=== PATIENT | female | born 1955 | race Hispanic/Latino ===

== ENCOUNTER 2020-09-16 23:28 | Emergency (ER) | payer MEDICARE ==
--- OUTSIDE RECORDS SUMMARY | 2020-09-16 23:31 | XMS REPORT | Continuity of Care Document ---
:1955 Author Organization [facility] t Address [address] [place] [address] [address]. [address] [place] [address] Care Team Providers Name Role Phone Unavailable Unavailable Unavailable Problems Condition Condition Condition Status Onset Resolution Last Treating Co mments Source Name Details Category Date Date Treatment Clinician Date Sprain of Sprain of Diagnosis Active [facility] right right [facility] - rotator rotator [facility] cuff cuff l capsule, capsule, Outpat i initial initial ent encounter encounter Clin ics Bicipital Bicipital Diagnosis Active [facility] tendinitis tendinitis Mely kes - of right of right Memori a shoulder shoulder l Outpati ent Clinics Pain, Pain, Diagnosis Active [facility] joint, joint, [facility] - shoulder, shoulder, Angel makayla right right l Outpati ent Clinics Subacromia Subacromia Diagnosis Active [facility] l bursitis l bursitis Mely kes - of right of right Memori a shoulder shoulder l joint joint Outpati ent Clinics Allergies, Adverse Reactions, Alerts Allergy Allergy Status Severity Reaction(s) Onset Inactive Treating Comm ents Source Name Type Date Date Clinician codeine Adverse Active Info Not [facility] Reaction Available [facility] Medications Ordered Filled Start Stop Current Ordering Indication Dosage Frequency Signature Comments Components Source Medication Medication Date Date Medication? Clinician (SIG) Name Name Losartan Losartan Yes Gera [address] [facility] Potassium Potassium 8-14 Hyot [facility] - 00:00: [facility]oria 00 l Outpati ent Clinics GlyBURIDE GlyBURIDE Yes Gera [address] [facility] 8-14 Hoyt with [facility] - 00:00: breakfast Memoria or the l first main Outpati meal of ent the day Clinics Metformin Metformin Yes Gera [address] [facility] HCl HCl 8-14 Hoyt with a [facility] - 00:00: meal [facility] 00 Outpati ent Clinics Procedures This patient has no known procedures. Encounters Start End Encounter Admission Attending Care Care Encounter Source Date/Time Date/Time Type Type Clinicians Facility Department ID 2018-01-14 2018-01-14 Outpatient Олегpepper Pasha [id number] [facility] [address] 13:30:00 13:30:00 [facility] ent Clinics Results This patient has no known results.
[2020-09-17 01:27] LABS: Absolute Lymphocytes (CBC) 2.9 K/uL (0.7-4.9); Basophils % 0.5 % (0-1.3); Hematocrit 36.8 % (36.0-45.0); Lymphocytes % 39.2 % (15.3-44.8); MPV 8.4 fL (7.6-11.3); Protime INR 0.89; RBC Red Blood Cell Count 4.13 M/uL (3.86-4.86)
[2020-09-17] MEDS ORDERED: METOCLOPRAMIDE 10 MG/2mL INJ ONE (01:36)
[2020-09-17] MEDS ORDERED: NA CHLORIDE 0.9% 500 ML ONE (01:36)
[2020-09-17] MEDS ORDERED: DIPHENHYDRAMINE 50 MG/ML VIAL ONE (01:36)
[2020-09-17 01:41] LABS: ALT/SGPT 32 U/L (12-78); AST/SGOT 16 U/L (15-37); Albumin 4.2 g/dL (3.4-5.0); Alkaline Phosphatase 36 U/L (45-117); BUN Blood Urea Nitrogen 10 mg/dL (7-18); Bicarbonate 26 mmol/L (21-32); Bilirubin Direct 0.1 mg/dL (0-0.2); Bilirubin Total 0.5 mg/dL (0.2-1.0); Glucose Level 118 mg/dL (74-106); Magnesium 1.6 mg/dL (1.8-2.4); NT PRO-BNP 48 pg/mL (<125); Potassium 3.5 mmol/L (3.5-5.1); Protein, Total 7.6 g/dL (6.4-8.2); Sodium Level 134 mmol/L (136-145); Troponin (Emerg Dept Use Only) < 0.02 ng/mL (0.0-0.045)
--- NOTE | 2020-09-17 04:48 | ER ---
Nurse's Notes [facility] Name: Karis Dawson Age: 65 yrs Sex: Female : 1955 Arrival Date: 09/16/2020 Time: 23:32 Bed 4 Private MD: Diagnosis: Hypertension;Headache Presentation: 09/17 00:20 Chief complaint: Patient states: BP at 2030 was high, 180/68; reports BP has continued lp1 to be high; Reports checking BP due to having headache; reports nausea and diarrhea that began at 2200. Coronavirus screen: Client denies travel out of the [place] in the last 14 days. At this time, the client does not indicate any symptoms associated with coronavirus-19. Ebola Screen: No symptoms or risks identified at this time. Risk Assessment: Do you want to hurt yourself or someone else? Patient reports no desire to harm self or others. Onset of symptoms was September 16, 2020 at 20:30. 00:20 Method Of Arrival: Ambulatory lp1 00:20 Acuity: DELICIA 2 lp1 00:24 Initial Sepsis Screen: Does the patient meet any 2 criteria? No. Patient's initial lp1 sepsis screen is negative. Does the patient have a suspected source of infection? No. Patient's initial sepsis screen is negative. Historical: - Allergies: 00:24 No Known Allergies; lp1 - Home Meds: 00:24 losartan 100 mg oral tab twice a day [Active]; Metformin Oral [Active]; Glipizide Oral lp1 [Active]; hydrochlorothiazide 25 mg Oral tab 1 tab once daily [Active]; - PMHx: 00:24 Hypertension; Diabetes - NIDDM; lp1 - PSHx: 00:24 None; lp1 - Immunization history:: Adult Immunizations up to date. - Social history:: Smoking status: Patient denies any tobacco usage or history of. Screenin:24 Abuse screen: Denies threats or abuse. Denies injuries from another. Nutritional lp1 screening: No deficits noted. Tuberculosis screening: No symptoms or risk factors identified. 00:59 Fall Risk None identified. rv Assessment: 00:59 General: Appears comfortable, Behavior is calm, cooperative. Pain: Complains of pain in rv HEAD. Neuro: Level of Consciousness is awake, alert, obeys commands, Oriented to person, place, time, situation, Reports headache. Cardiovascular: Patient's skin is warm and dry. Rhythm is regular. Cardiovascular: Denies chest pain. Respiratory: Airway is patent Respiratory effort is even, unlabored. Derm: Skin is intact. 02:25 Reassessment: Patient appears in no apparent distress at this time. Patient is alert, rr5 oriented x 3, equal unlabored respirations, skin warm/dry/pink. 03:44 Reassessment: awaiting for review. rr5 04:15 Reassessment: Patient appears in no apparent distress at this time. No changes from rr5 previously documented assessment. 04:59 Reassessment: Patient appears in no apparent distress at this time. Patient is alert, rr5 oriented x 3, equal unlabored respirations, skin warm/dry/pink. discharge instruction given and explained without complaints made. Vital Signs: 00:24 BP 215 / 72 RA; Pulse 69; Resp 18; Temp 97.9(TE); Pulse Ox 99% on R/A; Weight 61.69 kg lp1 (R); Pain 6/10; 00:29 BP 175 / 106 LA; lp1 01:00 BP 185 / 64; Pulse 61; Resp 19; Pulse Ox 100% on R/A; rv 02:00 BP 157 / 65; Pulse 62; Resp 20; Pulse Ox 100% on R/A; rv 03:33 BP 158 / 66; Pulse 57; Resp 16; Pulse Ox 100% on R/A; rv 04:59 BP 147 / 65; Pulse 63; Resp 16; Pulse Ox 98% ; rr5 ED Course: 09/16 23:32 Patient arrived in ED. bp1 09/17 00:23 Triage completed. lp1 00:23 Arm band placed on right wrist. lp1 00:34 Herman Akbar, XU is Primary Nurse. rv 00:56 Hayden Garcia MD is Attending Physician. mh7 00:57 Initial lab(s) drawn, by me, sent to lab. EKG done, by ED staff, reviewed by Hayden Garcia MD. Inserted saline lock: 20 gauge in right antecubital area, using aseptic technique. Blood collected. 01:00 Patient has correct armband on for positive identification. site monitor on. Pulse rv ox on. NIBP on. 02:56 CT Head Brain wo Cont In Process Unspecified. EDMS 03:00 CT Abd/Pelvis - IV Contrast Only In Process Unspecified. EDMS 05:00 No provider procedures requiring assistance completed. IV discontinued, intact, rv bleeding controlled, No redness/swelling at site. Pressure dressing applied. 05:00 No provider procedures requiring assistance completed. IV discontinued, intact, rr5 bleeding controlled, No redness/swelling at site. Pressure dressing applied. Administered Medications: 01:25 Drug: Benadryl (diphenhydrAMINE) 25 mg Route: IVP; Site: right antecubital; rr5 02:21 Follow up: Response: No adverse reaction rv 01:25 Drug: NS 0.9% 500 ml Route: IV; Rate: bolus; Site: right antecubital; rr5 02:21 Follow up: IV Status: Completed infusion; IV Intake: 500ml rv 01:27 Drug: Reglan (metoCLOPramide) 10 mg Route: IVP; Site: right antecubital; rr5 02:21 Follow up: Response: No adverse reaction rv Intake: 02:21 IV: 500ml; Total: 500ml. rv Outcome: 04:47 Discharge ordered by . mh7 05:00 Discharged to home ambulatory, with family. rr5 05:00 Condition: stable 05:00 Discharge instructions given to patient, Instructed on discharge instructions, follow up and referral plans. Demonstrated understanding of instructions, follow-up care. 05:00 Patient left the ED. rr5 Signatures: Dispatcher [employer] EDMS Arely Melendrez RN RN lp1 Herman Akbar RN RN rv Curtis Magallon RN RN rr5 Marcy Baugh Maurice, MD MD 7 Corrections: (The following items were deleted from the chart) 00:27 00:24 Pulse 69bpm; Resp 18bpm; Pulse Ox 99% RA; Temp 97.9F Temporal; 61.69 kg Reported; lp1 Pain 6/10; lp1 00:29 00:20 Acuity: DELICIA 3 lp1 lp1
--- NOTE | 2020-09-17 04:48 | EDPHYS ---
Physician Documentation [facility] Name: Karis Dawson Age: 65 yrs Sex: Female : 1955 Arrival Date: 09/16/2020 Time: 23:32 Bed 4 Private MD: ED Physician Hayden Garcia HPI: 09/17 01:54 This 65 yrs old Female presents to ER via Ambulatory with complaints of High mh7 Blood Pressure. 01:54 The patient has elevated blood pressure and discovered this at home, with a home mh7 device. Onset: The symptoms/episode began/occurred last night. Modifying factors: The symptoms are aggravated by nothing, The symptoms are alleviated by nothing. Associated signs and symptoms: Pertinent positives: headache, nausea, diarrhea, Pertinent negatives: chest pain, dizziness, dyspnea, lightheadedness, visual changes, vomiting, weakness. Severity of symptoms: At its worst the blood pressure was 211 mm Hg, in the emergency department the blood pressure is improved, moderately. The patient has experienced similar episodes in the past, multiple times. Historical: - Allergies: 00:24 No Known Allergies; lp1 - Home Meds: 00:24 losartan 100 mg oral tab twice a day [Active]; Metformin Oral [Active]; Glipizide Oral lp1 [Active]; hydrochlorothiazide 25 mg Oral tab 1 tab once daily [Active]; - PMHx: 00:24 Hypertension; Diabetes - NIDDM; lp1 - PSHx: 00:24 None; lp1 - Immunization history:: Adult Immunizations up to date. - Social history:: Smoking status: Patient denies any tobacco usage or history of. ROS: 01:54 Constitutional: Negative for fever, chills, and weight loss, Eyes: Negative for injury, mh7 pain, redness, and discharge, ENT: Negative for injury, pain, and discharge, Neck: Negative for injury, pain, and swelling, Cardiovascular: Negative for chest pain, palpitations, and edema, Respiratory: Negative for shortness of breath, cough, wheezing, and pleuritic chest pain, Back: Negative for injury and pain, : Negative for injury, bleeding, discharge, and swelling, MS/Extremity: Negative for injury and deformity, Skin: Negative for injury, rash, and discoloration, Psych: Negative for depression, anxiety, suicide ideation, homicidal ideation, and hallucinations, Allergy/Immunology: Negative for hives, rash, and allergies, Endocrine: Negative for neck swelling, polydipsia, polyuria, polyphagia, and marked weight changes, Hematologic/Lymphatic: Negative for swollen nodes, abnormal bleeding, and unusual bruising. Exam: 01:54 Constitutional: This is a well developed, well nourished patient who is awake, alert, mh7 and in no acute distress. Head/Face: Normocephalic, atraumatic. Eyes: Pupils equal round and reactive to light, extra-ocular motions intact. Lids and lashes normal. Conjunctiva and sclera are non-icteric and not injected. Cornea within normal limits. Periorbital areas with no swelling, redness, or edema. Neck: Trachea midline, no thyromegaly or masses palpated, and no cervical lymphadenopathy. Supple, full range of motion without nuchal rigidity, or vertebral point tenderness. No Meningismus. Chest/axilla: Normal chest wall appearance and motion. Nontender with no deformity. No lesions are appreciated. Cardiovascular: Regular rate and rhythm with a normal S1 and S2. No gallops, murmurs, or rubs. Normal PMI, no JVD. No pulse deficits. Respiratory: Lungs have equal breath sounds bilaterally, clear to auscultation and percussion. No rales, rhonchi or wheezes noted. No increased work of breathing, no retractions or nasal flaring. Abdomen/GI: Soft, non-tender, with normal bowel sounds. No distension or tympany. No guarding or rebound. No evidence of tenderness throughout. Back: No spinal tenderness. No costovertebral tenderness. Full range of motion. Skin: Warm, dry with normal turgor. Normal color with no rashes, no lesions, and no evidence of cellulitis. MS/ Extremity: Pulses equal, no cyanosis. Neurovascular intact. Full, normal range of motion. Neuro: Awake and alert, GCS 15, oriented to person, place, time, and situation. Cranial nerves II-XII grossly intact. Motor strength 5/5 in all extremities. Sensory grossly intact. Cerebellar exam normal. Normal gait. Psych: Awake, alert, with orientation to person, place and time. Behavior, mood, and affect are within normal limits. Vital Signs: 00:24 BP 215 / 72 RA; Pulse 69; Resp 18; Temp 97.9(TE); Pulse Ox 99% on R/A; Weight 61.69 kg lp1 (R); Pain 6/10; 00:29 BP 175 / 106 LA; lp1 01:00 BP 185 / 64; Pulse 61; Resp 19; Pulse Ox 100% on R/A; rv 02:00 BP 157 / 65; Pulse 62; Resp 20; Pulse Ox 100% on R/A; rv 03:33 BP 158 / 66; Pulse 57; Resp 16; Pulse Ox 100% on R/A; rv 04:59 BP 147 / 65; Pulse 63; Resp 16; Pulse Ox 98% ; rr5 MDM: 04:45 Differential diagnosis: hypertensive crisis, Malignant HTN, Headache. Data reviewed: [facility] vital signs, nurses notes, lab test result(s), cardiac enzymes, CBC, electrolytes, urinalysis, EKG, radiologic studies, CT scan. Data interpreted: Pulse oximetry: on room air is 100 %. Interpretation: normal. Counseling: I had a detailed discussion with the patient and/or guardian regarding: the historical points, exam findings, and any diagnostic results supporting the discharge/admit diagnosis, the presence of at least one elevated blood pressure reading (>120/80) during this emergency department visit, lab results, radiology results, the need for outpatient follow up, to return to the emergency department if symptoms worsen or persist or if there are any questions or concerns that arise at home. Response to treatment: the patient's symptoms have resolved after treatment, the patient's blood pressure is in an acceptable range, mental status has returned to baseline, the patient no longer shows bradycardia, the patient is not short of breath, the patient is not tachycardic, the patient's pain is gone, the patient's temperature has normalized. 04:47 Patient medically screened. [facility] 09/17 00:58 Order name: Basic Metabolic Panel; Complete Time: 03:38 09/17 00:58 Order name: CBC with Diff; Complete Time: 03:38 09/17 00:58 Order name: LFT's; Complete Time: 03:38 09/17 00:58 Order name: Magnesium; Complete Time: 03:38 09/17 00:58 Order name: NT PRO-BNP; Complete Time: 03:38 09/17 00:58 Order name: PT-INR; Complete Time: 03:38 09/17 00:58 Order name: Troponin (emerg Dept Use Only); Complete Time: 03:38 09/17 00:58 Order name: EKG; Complete Time: 00:59 09/17 00:58 Order name: Cardiac monitoring; Complete Time: 00:58 09/17 01:11 Order name: CT Head Brain wo Cont [facility] 09/17 01:12 Order name: CT Abd/Pelvis - IV Contrast Only [facility] 09/17 00:58 Order name: EKG - Nurse/Tech; Complete Time: 00:58 09/17 00:58 Order name: IV Saline Lock; Complete Time: 00:58 09/17 00:58 Order name: Labs collected and sent; Complete Time: 00:58 09/17 00:58 Order name: O2 Per Protocol; Complete Time: 00:58 09/17 00:58 Order name: O2 Sat Monitoring; Complete Time: 00:58 rv Administered Medications: 01:25 Drug: Benadryl (diphenhydrAMINE) 25 mg Route: IVP; Site: right antecubital; rr5 02:21 Follow up: Response: No adverse reaction rv 01:25 Drug: NS 0.9% 500 ml Route: IV; Rate: bolus; Site: right antecubital; rr5 02:21 Follow up: IV Status: Completed infusion; IV Intake: 500ml rv 01:27 Drug: Reglan (metoCLOPramide) 10 mg Route: IVP; Site: right antecubital; rr5 02:21 Follow up: Response: No adverse reaction rv Disposition: 09/17/20 04:47 Discharged to Home. Impression: Hypertension, Headache. - Condition is Stable. - Discharge Instructions: Hypertension, [id number], General Headache Without Cause, [id number]. - Medication Reconciliation Form, Thank You Letter, Antibiotic Education, Prescription Opioid Use form. - Follow up: Private Physician; When: 1 - 2 days; Reason: Worsening of condition, Recheck today's complaints, Continuance of care, Re-evaluation by your physician. - Problem is an acute exacerbation. - Symptoms have improved. Signatures: Dispatcher [employer] EDMS Arely Melendrez RN RN lp1 Herman Akbar RN RN Curtis Taylor RN RN rr5 Hayden Garcia MD MD mh7 Corrections: (The following items were deleted from the chart) 05:00 04:47 09/17/2020 04:47 Discharged to Home. Impression: Hypertension; Headache. rr5 Condition is Stable. Forms are Medication Reconciliation Form, Thank You Letter, Antibiotic Education, Prescription Opioid Use. Follow up: Private Physician; When: 1 - 2 days; Reason: Worsening of condition, Recheck today's complaints, Continuance of care, Re-evaluation by your physician. Problem is an acute exacerbation. Symptoms have improved. mh7
[2020-09-17 05:14] VITALS: TEMP 97.9
[2020-09-17 05:21] VITALS: BP 147/65; O2SAT 98
--- NOTE | 2020-09-17 21:50 | RAD REPORT ---
EXAM DESCRIPTION: CT - Head Brain Wo Cont - 09/17/2020 6:40 am CLINICAL HISTORY: 65 years, Female, HEADACHE COMPARISON: None. FINDINGS: Multiple transaxial tomograms of the brain were obtained from the base of the skull to the vertex without contrast. 2-D multiplanar reformats and the coronal and sagittal plane were performed and reviewed. An individualized dose optimization technique, Automated Exposure Control, was utilized for the perfo rmed procedure. Brain parenchyma as well as the lopez and white matter differentiation demonstrate to be unremarkable. There is no midline shift and/or mass effect. There is no evidence for acute hemorrhage. Lateral v entricles and cisterns displace normal appearance. No intra or extra axial fluid collections were s een. The calvarium is intact with no evidence for fracture. The visualized portions of the paranasal sinuses and orbits demonstrate to be clear. IMPRESSION: NO ACUTE INTRACRANIAL HEMORRHAGE. UNREMARKABLE CT SCAN OF THE HEAD WITHOUT CONTRAST. Electronically signed by: Lew Zamorano MD 09/17/2020 3:08 AM CDT Due to temporary technical issues with the PACS/Fluency reporting system, reports are being signed by the in house radiologists without review as a courtesy to insure prompt reporting. The interpreting radiologist is fully responsible for the content of the report.
--- NOTE | 2020-09-17 21:53 | RAD REPORT ---
EXAM DESCRIPTION: CT - Abdomen Pelvis W Contrast - 09/17/2020 6:39 am COMPARISON: None. CLINICAL HISTORY: [facility] MAIN diarrhea;Nausea / vomiting TECHNIQUE: CT of the abdomen and pelvis was acquired with IV contrast material. Coronal and sagitt al reconstructions were obtained. Automated exposure control was utilized on this examination as a dose lowering technique. FINDINGS: Lung bases: Mild cardiomegaly with otherwise clear lung bases. Liver: Normal. Gallbladder and biliary: A large gallstone is present in the fundus measuring 2.5 cm. Unremarkable bi liary tree. Pancreas: Normal. Spleen: Normal. Adrenal glands: Normal adrenal glands. Kidneys: Normal kidneys Stomach and Small Bowel: The stomach and small bowel are normal. Urinary bladder: Distended. Uterus and Adnexa: Normal. Colon and Appendix: The colon is unremarkable. No evidence of appendicitis. Retroperitoneum and lymph nodes: Normal. Vascular: Moderate multivessel calcified atherosclerosis. Peritoneal cavity: No ascites or free air. Musculoskeletal and soft tissues: Soft tissues are unremarkable. No aggressive bone lesions. No com pression fracture. Lumbar spondylosis is present. There is 3 mm anterolisthesis L5 on S1. IMPRESSION: 1. No acute intra-abdominal abnormality. 2. Mild cardiomegaly. 3. Cholelithiasis. 4. Moderate atherosclerosis. 5. Distended urinary bladder. Electronically signed by: Jaya Brown MD 09/17/2020 3:23 AM CDT Due to temporary technical issues with the PACS/Fluency reporting system, reports are being signed by the in house radiologists without review as a courtesy to insure prompt reporting. The interpreting radiologist is fully responsible for the content of the report.
== END 2020-09-17 05:00 | disposition home or self-care (01) ==
LOC: ER 23:28
DX: I10 Essential (primary) hypertension (principal); R51.9 Headache, unspecified; E11.9 Type 2 diabetes mellitus without complications; Z79.84 Long term (current) use of oral hypoglycemic drugs
CPT/HCPCS: 85025; 80048; 36415; 83735; 85610; 80076; 84484; 83880; 70450; 74177; Q9967; J2765; J1200; J7040; 93005; 96361; 96374; 96375; 99284

== ENCOUNTER 2024-03-10 03:22 | Inpatient (IN) | payer OTHER ==
--- OUTSIDE RECORDS SUMMARY | 2024-03-10 03:24 | XMS REPORT | Continuity of Care Document ---
Author Name Unknown Address [address] [facility] [place] [address] [facility] thconnect Address [address] [facility] [address] [place] [address] Care Team Providers Care Visitor Services Technician Name Role Phone Unavailable Unavailable Unavailable Problems Condition Name Condition Details Condition Category Status Onset Date Resolution Date Last Treatment Date Treating Clinician Comments Source Subacromia l bursitis of right shoulder joint Subacromia l bursitis of right shoulder joint Diagnosis Active [facility] Sprain of right rotator cuff capsule, initial encounter Sprain of right rotator cuff capsule, initial encounter Diagnosis Active [facility] Bicipital tendinitis of right shoulder Bicipital tendinitis of right shoulder Diagnosis Active [facility] Pain, joint, shoulder, right Pain, joint, shoulder, right Diagnosis Active [facility] Allergies, Adverse Reactions, Alerts Allergy Name Allergy Type Status Severity Reaction(s) Onset Date Inactive Date Treating Clinician Comments Source codeine Adverse Reaction Active Info Not Available [facility] Medications Ordered Medication Name Filled Medication Name Start Date Stop Date Current Medication? Ordering Clinician Indication Dosage Frequency Signature (SIG) Comments Components Source Losartan Potassium Losartan Potassium 01-14 00:00: 00 Yes Gera Hoyt 1 tablet [facility] GlyBURIDE GlyBURIDE 01-14 00:00: 00 Yes Gera Hoyt 1 tablet with breakfast or the first main meal of the day [facility] Metformin HCl Metformin HCl 01-14 00:00: 00 Yes Gera Hoyt 1 tablet with a meal [facility] Encounters Start Date/Time End Date/Time Encounter Type Admission Type Attending Clinicians Care Facility Care Department Encounter ID Source 2022-08-31 16:18:08 2022-08-31 16:18:08 Outpatient [facility] [id number] Shiraz Whatley 2018-01-14 13:30:00 2018-01-14 13:30:00 Outpatient [facility] [id number] [facility]
[2024-03-10] MEDS ORDERED: ONDANSETRON 4 MG/2 ML VIAL ONE (03:49)
[2024-03-10] MEDS ORDERED: MORPHINE 4 MG/ML SYR ONE (03:50)
[2024-03-10 04:13] LABS: Absolute Eosinophils 0.1 K/uL (0-0.5); Absolute Lymphocytes (CBC) 3.3 K/uL (0.7-4.9); Absolute Monocytes 0.7 K/uL (0.1-1.3); Absolute Neutrophil 6.1 K/uL (1.8-8.0); Basophils % 0.3 % (0-1.3); Eosinophils % 1.1 % (0-4.4); Hematocrit 34.3 % (36.0-45.0); Hemoglobin 11.4 g/dL (12.0-15.0); Lymphocytes % 32.3 % (15.3-44.8); MCH 29.1 pg (27.0-35.0); MCHC 33.1 g/dL (32.0-36.0); MCV 87.8 fL (80-100); MPV 7.9 fL (7.6-11.3); Monocytes % 7.3 % (3.3-12.3); Platelets 506 thou/uL (152-406); RBC Red Blood Cell Count 3.91 M/uL (3.86-4.86); Red Cell Distribution Width 14.5 % (12.1-15.2)
[2024-03-10 04:19] LABS: Specific Gravity 1.008 (1.005-1.030); Urine Bilirubin NEGATIVE (Negative); Urine Blood Negative (Negative); Urine Clarity Clear (Clear); Urine Color Colorless (Yellow); Urine Glucose NEGATIVE (Negative); Urine Ketones NEGATIVE (Negative); Urine Microscopic Reflex YN NO UMIC; Urine Nitrite NEGATIVE (Negative); Urine Protein NEGATIVE (Negative); Urine Urobilinogen Normal (Normal)
[2024-03-10 04:25] LABS: Albumin 3.7 g/dL (3.4-5.0); Albumin/Globulin Ratio 0.9 (1.1-1.8); Anion Gap 12.4 mEq/L (5.0-15.0); Bilirubin Total 0.4 mg/dL (0.2-1.0); Globulin 4.3 g/dL (2.3-3.5); Potassium 3.4 mEq/L (3.5-5.1); Troponin High Sensitivity 4.7 pg/mL (<58.9)
--- NOTE | 2024-03-10 06:27 | RAD REPORT ---
EXAM DESCRIPTION: Abdomen Pelvis W Contrast RadLex: CT ABDOMEN PELVIS WITH IV CONTRAST CLINICAL HISTORY: 68 years Female; ABD PAIN; IV ONLY Bed Name: 7 TECHNIQUE: CT of the abdomen and pelvis [with] intravenous contrast. All CT scans at this facility use dose modulation, iterative reconstruction, and/or weight based dosi ng when appropriate to reduce radiation dose to as low as reasonably achievable. COMPARISON: CT abdomen pelvis 09/17/2020 FINDINGS: Lower thorax: Lung bases are clear Abdomen: Stomach: Within normal limits Liver: No focal lesions. Hepatic steatosis. No intrahepatic ductal distention. Gallbladder: Cholelithiasis. Wall thickening and stranding surrounding the gallbladder. Pancreas: Within normal limits Spleen: Within normal limits Right kidney: No hydronephrosis. No focal lesion. Left kidney: No hydronephrosis. No focal lesion. Adrenal glands: Within normal limits Vascular structures: Atherosclerosis of the abdominal aorta and major branches. Nodes: No lymphadenopathy by size criteria Pelvis: Small bowel: No significant distention. Appendix: Within normal limits Colon: No distention or acute pericolonic edema. Moderate stool burden. Peritoneum: No free intraperitoneal fluid or air. Bones: No acute bone findings. Grade 1 anterolisthesis at L5-S1. Bladder: Unremarkable. Reproductive organs: No acute findings. Soft tissues: Tiny fat-containing umbilical hernia. IMPRESSION: 1. Cholelithiasis with gallbladder wall thickening and stranding surrounding the gallbladder, gustavo rning for acute cholecystitis. Recommend dedicated ultrasound for further evaluation. 2. Hepatic steatosis. 3. Moderate stool burden. Electronically signed by: Paramjit Frausto MD 03/10/2024 06:11 AM [facility] Due to temporary technical issues with the PACS/Service at Home reporting system, reports are being erin d by the in-house radiologist without review as a courtesy to ensure prompt reporting the interpreting radiologist is fully responsible for the content of the report. Transcribed Date/Time: 03/10/2024 6:48 AM
[2024-03-10] MEDS ORDERED: NA CHLORIDE 0.9% 100 ML ONE (06:34)
[2024-03-10] MEDS ORDERED: PIPERACIL/TAZO 3.375 GM VIAL IV ONE (06:34)
--- NOTE | 2024-03-10 06:36 | ER ---
Nurse's Notes [facility] Name: Karis Dawson Age: 68 yrs Sex: Female : 1955 Arrival Date: 03/10/2024 Time: 03:22 Bed 7 Private MD: Miguel Angel Rainey Diagnosis: Acute cholecystitis Presentation: 03/10 03:40 Chief complaint: Patient states: c/o epigastric and RUQ abdominal pain starting at 2130 al5 last night, patient states that she has been having some nausea, vomiting, and diarrhea earlier in the week. Coronavirus screen: At this time, the client does not indicate any symptoms associated with coronavirus-19. Ebola Screen: No symptoms or risks identified at this time. Initial Sepsis Screen: Does the patient meet any 2 criteria? No. Patient's initial sepsis screen is negative. Does the patient have a suspected source of infection? No. Patient's initial sepsis screen is negative. Risk Assessment: Do you want to hurt yourself or someone else? Patient reports no desire to harm self or others. Onset of symptoms was March 09, 2024. 03:40 Method Of Arrival: Ambulatory al5 03:40 Acuity: DELICIA 3 al5 Triage Assessment: 03:45 General: Appears in no apparent distress. uncomfortable, Behavior is calm, cooperative. al5 Pain: Complains of pain in epigastric area and right upper quadrant Is continuous. EENT: No signs and/or symptoms were reported regarding the EENT system. Neuro: Level of Consciousness is awake, alert, obeys commands, Oriented to person, place, time, situation. Cardiovascular: Capillary refill < 3 seconds Patient's skin is warm and dry. Respiratory: Airway is patent Respiratory effort is even, unlabored, Respiratory pattern is regular, symmetrical. GI: Abdomen is flat, non-distended, Reports upper abdominal pain, diarrhea, epigastric pain, nausea, vomiting. : No signs and/or symptoms were reported regarding the genitourinary system. Derm: Skin is intact, Skin is pink, warm \T\ dry. normal. Musculoskeletal: No signs and/or symptoms reported regarding the musculoskeletal system. Historical: - Allergies: 03:41 No Known Allergies; al5 - Home Meds: 03:41 losartan 100 mg Oral tab twice a day [Active]; hydrochlorothiazide 25 mg Oral tab 1 tab al5 once daily [Active]; Metformin Oral [Active]; Glipizide Oral [Active]; - PMHx: 03:41 Diabetes - NIDDM; Hypertension; al5 - PSHx: 03:41 None; al5 - Immunization history:: Adult Immunizations up to date. - Infectious Disease History:: Denies. - Social history:: Smoking status: Patient denies any tobacco usage or history of. - Family history:: not pertinent. Screenin:47 [facility] ED Fall Risk Assessment (Adult) History of falling in the last 3 months, al5 including since admission No falls in past 3 months (0 pts) Confusion or Disorientation No (0 pts) Intoxicated or Sedated No (0 pts) Impaired Gait No (0 pts) Mobility Assist Device Used No (0 pt) Altered Elimination No (0 pt) Score/Fall Risk Level 0 - 2 = Low Risk Oriented to surroundings, Maintained a safe environment, Hourly rounding (assess needs \T\ fall precautionary measures) done. Abuse screen: Denies threats or abuse. Denies injuries from another. Nutritional screening: No deficits noted. Tuberculosis screening: No symptoms or risk factors identified. Assessment: 03:46 Reassessment: see triage assessment. al5 03:48 GI: Bowel sounds present X 4 quads. Abdomen is tender to palpation in epigastric area al5 and right upper quadrant. 05:02 Reassessment: Patient appears in no apparent distress at this time. Patient and/or al5 family updated on plan of care and expected duration. Pain level reassessed. Patient is alert, oriented x 3, equal unlabored respirations, skin warm/dry/pink. Patient states feeling better. 06:47 Reassessment: Patient and/or family updated on plan of care and expected duration. Pain br2 level reassessed. Patient is alert, oriented x 3, equal unlabored respirations, skin warm/dry/pink. LAST MEAL WAS YESTERDAY AT 1830, AND HAD A CUP OF TEA AT 0130AM Patient states feeling better. 07:14 Reassessment: Karey LINEN SORTER at bedside assessing pt and discussing plan of care. Family at ss bedside. Vital Signs: 03:30 BP 181 / 66; Pulse 71; Resp 18; Pulse Ox 100% on R/A; al5 03:40 BP 167 / 72; Pulse 85; Resp 18; Temp 97.8; Pulse Ox 100% on R/A; Weight 59.42 kg; al5 Height 5 ft. 0 in. ; 03:40 BP 156 / 57; Pulse 63; Resp 17; Pulse Ox 100% on R/A; al5 03:45 BP 153 / 56; Pulse 63; Resp 17; Pulse Ox 100% on R/A; al5 04:00 BP 138 / 53; Pulse 57; Resp 17; Pulse Ox 100% on R/A; al5 04:30 BP 143 / 60; Pulse 62; Resp 18; Pulse Ox 98% on R/A; al5 04:51 BP 144 / 60; Pulse 65; Resp 18 S; Pulse Ox 98% on R/A; br2 05:42 BP 143 / 60; Pulse 65; Resp 18 S; Pulse Ox 97% on R/A; br2 06:43 BP 128 / 56; Pulse 61; Resp 18 S; Pulse Ox 98% on R/A; br2 03:40 Body Mass Index 25.58 (59.42 kg, 152.4 cm) al5 ED Course: 03:25 Patient arrived in ED. gm2 03:26 Miguel Angel Rainey MD is Private Physician. gm2 03:28 Booker Odell MD is Attending Physician. rt 03:39 Vonnie Carbajal, XU is Primary Nurse. al5 03:41 Triage completed. al5 03:46 Arm band placed on right wrist. Patient placed in the treatment room, on a stretcher. al5 03:47 Patient has correct armband on for positive identification. Placed in gown. Bed in low al5 position. Call light in reach. Side rails up X2. Provided Education on: plan of care. 03:47 No provider procedures requiring assistance completed. Inserted saline lock: 20 gauge al5 in right antecubital area, using aseptic technique. Blood collected. Flushed with 10 mL NS. 04:01 CBC with Diff Sent. al5 04:01 CMP Sent. al5 04:01 Lipase Sent. al5 04:01 Urinalysis w/ reflexes Sent. al5 04:01 Troponin High Sensitivity Sent. al5 05:01 CT Abd/Pelvis - IV Contrast Only In Process Unspecified. EDMS 05:27 US Abdomen Limited In Process Unspecified. EDMS 06:34 Sophy Chang MD is Hospitalizing Provider. rt 08:20 Patient admitted, IV remains in place. ss Administered Medications: 04:00 Drug: NS 0.9% IV 1000 ml IV at 1 bolus Per protocol; 1000 mL bolus Route: IV; Rate: 1 al5 bolus; Site: right antecubital; 05:30 Follow up: Response: No adverse reaction; IV Status: Completed infusion; IV Intake: br2 1000ml 04:01 Drug: Ondansetron IVP 4 mg IVP once; over 2 minutes Route: IVP; Site: right antecubital;al5 05:03 Follow up: Response: No adverse reaction; Nausea is decreased al5 04:01 Drug: morphine IVP or IV 4 mg IVP once over 4 mins Route: IVP; Infused Over: 4 mins; al5 Site: right antecubital; 05:03 Follow up: Response: No adverse reaction; Pain is decreased al5 06:42 Drug: Piperacillin-Tazobactam IVPB 3.375 grams IVPB once over 60 mins; (mix in NS 100 br2 mL) Route: IVPB; Infused Over: 60 mins; Site: right antecubital; 07:20 Follow up: IV Status: Completed infusion ss Medication: 03:47 VIS not applicable for this client. al5 Intake: 05:30 IV: 1000ml; Total: 1000ml. br2 Outcome: 06:35 Decision to Hospitalize by Provider. rt 08:25 Admitted to Med/surg accompanied by nurse, family with patient, via wheelchair, room ss 225, Report called to FAXED TO XU UREÑA 08:25 Condition: good 08:25 Instructed on the need for admit, 08:38 Patient left the ED. iw Signatures: Dispatcher [employer] EDPA Jossy Henry RN RN iw Radha Galloway RN RN ss [place], Ryan, MD MD rt Bonny Ly gm2 Vonnie Carbajal RN RN al5 Chhaya Galloway RN RN br2
--- NOTE | 2024-03-10 06:36 | EDPHYS ---
Physician Documentation [facility] Name: Karis Dawson Age: 68 yrs Sex: Female : 1955 Arrival Date: 03/10/2024 Time: 03:22 Bed 7 Private MD: Miguel Angel Rainey ED Physician Booker Odell HPI: 03/10 03:48 This 68 yrs old Female presents to ER via Ambulatory with complaints of rt Abdominal Pain, Neck and Upper Back Pain. 03:48 Patient presents to the ED with epigastric to right upper quadrant pain starting at rt about 930. This was not immediately after eating. Patient had nausea and vomiting. Patient states that over the past week, she did have nausea, vomiting, diarrhea that is since improved. She is concerned that she is dehydrated. Denies other acute complaints, symptoms are moderate in severity, no other aggravating or elevating factors.. Historical: - Allergies: 03:41 No Known Allergies; al5 - Home Meds: 03:41 losartan 100 mg Oral tab twice a day [Active]; hydrochlorothiazide 25 mg Oral tab 1 tab al5 once daily [Active]; Metformin Oral [Active]; Glipizide Oral [Active]; - PMHx: 03:41 Diabetes - NIDDM; Hypertension; al5 - PSHx: 03:41 None; al5 - Immunization history:: Adult Immunizations up to date. - Infectious Disease History:: Denies. - Social history:: Smoking status: Patient denies any tobacco usage or history of. - Family history:: not pertinent. ROS: 03:48 Constitutional: Negative for fever, chills, and weight loss, Cardiovascular: Negative rt for chest pain, palpitations, and edema, Respiratory: Negative for shortness of breath, cough, wheezing, and pleuritic chest pain, MS/Extremity: Negative for injury and deformity, Skin: Negative for injury, rash, and discoloration, Neuro: Negative for headache, weakness, numbness, tingling, and seizure, 03:48 Abdomen/GI: Positive for abdominal pain, Negative for nausea, Exam: 03:48 Constitutional: This is a well developed, well nourished patient who is awake, alert, rt and in no acute distress. Head/Face: Normocephalic, atraumatic. Chest/axilla: Normal chest wall appearance and motion. Nontender with no deformity. No lesions are appreciated. Cardiovascular: Regular rate and rhythm with a normal S1 and S2. No gallops, murmurs, or rubs. Normal PMI, no JVD. No pulse deficits. Respiratory: Lungs have equal breath sounds bilaterally, clear to auscultation and percussion. No rales, rhonchi or wheezes noted. No increased work of breathing, no retractions or nasal flaring. Skin: Warm, dry with normal turgor. Normal color with no rashes, no lesions, and no evidence of cellulitis. MS/ Extremity: Pulses equal, no cyanosis. Neurovascular intact. Full, normal range of motion. Neuro: Awake and alert, GCS 15, oriented to person, place, time, and situation. Cranial nerves II-XII grossly intact. Motor strength 5/5 in all extremities. Sensory grossly intact. Cerebellar exam normal. Normal gait. 03:48 Abdomen/GI: Tenderness to the epigastrium to right upper quadrant with mild guarding, no rebound, distention, 03:54 ECG was reviewed by the Attending Physician. rt Vital Signs: 03:30 BP 181 / 66; Pulse 71; Resp 18; Pulse Ox 100% on R/A; al5 03:40 BP 167 / 72; Pulse 85; Resp 18; Temp 97.8; Pulse Ox 100% on R/A; Weight 59.42 kg; al5 Height 5 ft. 0 in. ; 03:40 BP 156 / 57; Pulse 63; Resp 17; Pulse Ox 100% on R/A; al5 03:45 BP 153 / 56; Pulse 63; Resp 17; Pulse Ox 100% on R/A; al5 04:00 BP 138 / 53; Pulse 57; Resp 17; Pulse Ox 100% on R/A; al5 04:30 BP 143 / 60; Pulse 62; Resp 18; Pulse Ox 98% on R/A; al5 04:51 BP 144 / 60; Pulse 65; Resp 18 S; Pulse Ox 98% on R/A; br2 05:42 BP 143 / 60; Pulse 65; Resp 18 S; Pulse Ox 97% on R/A; br2 06:43 BP 128 / 56; Pulse 61; Resp 18 S; Pulse Ox 98% on R/A; br2 03:40 Body Mass Index 25.58 (59.42 kg, 152.4 cm) al5 MDM: 03:32 Patient medically screened. rt 06:50 Differential diagnosis: Gallstones, cholecystitisPancreatitis, ACS. Data reviewed: rt vital signs. Consideration of Admission/Observation Patient was admitted/placed on observation. Management of patient was discussed with the following: Calendering Supervisor: Discussed with Dr. Espinosa, will operate.. I considered the following discharge prescriptions or medication management in the emergency department Medications were administered in the Emergency Department. See MAR. Independent interpretation of the following test(s) in the Emergency Department CT Scan: My interpretation is Cholelithiasis seen on my interpretation of CT scan images. Care significantly affected by the following chronic conditions: Diabetes, Hypertension. Counseling: I had a detailed discussion with the patient and/or guardian regarding the historical points, exam findings, and any diagnostic results supporting the discharge/admit diagnosis, lab results, radiology results, the need for further work-up and treatment in the hospital. Response to treatment: the patient's symptoms have markedly improved after treatment. 03/10 03:37 Order name: CBC with Diff; Complete Time: 04:32 rt 03/10 03:37 Order name: CMP; Complete Time: 04:32 rt 03/10 03:37 Order name: Lipase; Complete Time: 04:32 rt 03/10 03:37 Order name: Urinalysis w/ reflexes; Complete Time: 04:32 rt 03/10 03:37 Order name: Troponin High Sensitivity; Complete Time: 04:32 rt 03/10 07:35 Order name: CBC with Automated Diff EDMS 03/10 07:35 Order name: CBC with Automated Diff EDMS 03/10 07:35 Order name: CBC with Automated Diff EDMS 03/10 07:35 Order name: CBC with Automated Diff EDMS 03/10 07:35 Order name: Comprehensive Metabolic Panel EDMS 03/10 07:35 Order name: Comprehensive Metabolic Panel EDMS 03/10 07:35 Order name: Comprehensive Metabolic Panel EDMS 03/10 07:35 Order name: Comprehensive Metabolic Panel EDMS 03/10 07:35 Order name: Lipid Profile EDMS 03/10 07:35 Order name: Lipid Profile EDMS 03/10 07:35 Order name: Magnesium EDMS 03/10 07:35 Order name: Magnesium EDMS 03/10 07:35 Order name: Magnesium EDMS 03/10 07:35 Order name: Magnesium EDMS 03/10 03:37 Order name: CT Abd/Pelvis - IV Contrast Only rt 03/10 05:01 Order name: US Abdomen Limited rt 03/10 07:35 Order name: CONS Physician Consult EDMS 03/10 03:37 Order name: IV Saline Lock; Complete Time: 03:47 rt 03/10 03:37 Order name: Labs collected and sent; Complete Time: 03:47 rt 03/10 03:37 Order name: EKG - Nurse/Tech; Complete Time: 03:54 rt 03/10 06:31 Order name: NPO; Complete Time: 07:05 rt EC:54 Rate is 63 beats/min. Rhythm is regular, Normal Sinus Rhythm with No ectopy. QRS Crawford rt is Normal. RI interval is normal. QRS interval is normal. QT interval is normal. No Q waves. T waves are Normal. No ST changes noted. Interpreted by me. Administered Medications: 04:00 Drug: NS 0.9% IV 1000 ml IV at 1 bolus Per protocol; 1000 mL bolus Route: IV; Rate: 1 al5 bolus; Site: right antecubital; 05:30 Follow up: Response: No adverse reaction; IV Status: Completed infusion; IV Intake: br2 1000ml 04:01 Drug: Ondansetron IVP 4 mg IVP once; over 2 minutes Route: IVP; Site: right antecubital;al5 05:03 Follow up: Response: No adverse reaction; Nausea is decreased al5 04:01 Drug: morphine IVP or IV 4 mg IVP once over 4 mins Route: IVP; Infused Over: 4 mins; al5 Site: right antecubital; 05:03 Follow up: Response: No adverse reaction; Pain is decreased al5 06:42 Drug: Piperacillin-Tazobactam IVPB 3.375 grams IVPB once over 60 mins; (mix in NS 100 br2 mL) Route: IVPB; Infused Over: 60 mins; Site: right antecubital; 07:20 Follow up: IV Status: Completed infusion ss Disposition Summary: 03/10/24 06:35 Hospitalization Ordered Notes: Hospitalization Status: Observation rt Provider: Sophy Chang rt Condition: Stable rt Problem: new rt Symptoms: have improved rt Bed/Room Type: Standard rt Location: Telemetry/MedSurg (observation)(03/10/24 06:40) rv1 Room Assignment: 225(03/10/24 07:46) bd Diagnosis - Acute cholecystitis rt Forms: - Medication Reconciliation Form rt - SBAR form rt - Leadership Thank You Letter rt Signatures: Dispatcher [employer] EDMS Jono Coral Karey No, LABEL MAKER-C LABEL MAKER-Csnw Booker Odell MD MD rt aCrole Mccloud rv1 Vonnie Carbajal RN RN al5 Chhaya Galloway RN RN br2 Radha Galloway RN ss Corrections: (The following items were deleted from the chart) 06:38 06:35 Telemetry/MedSurg (observation) rt rv1 06:38 06:35 rt rv1 06:40 06:38 BR ER HOLD rv1 rv1 06:40 06:38 ERHOLD- rv1 rv1 07:46 06:40 rv1 bd
[2024-03-10] MEDS ORDERED: PROMETHAZINE INJ 25 MG/ML AMP IV PRN (07:24)
[2024-03-10] MEDS ORDERED: SODIUM CHLORIDE 0.9% 10ML INJ IV PRN (07:24)
--- NOTE | 2024-03-10 07:24 | P.HP ---
Certification for Inpatient Patient admitted to: Inpatient With expected LOS: >2 Midnights Patient will require the following post-hospital care: None Practitioner: I am a practitioner with admitting privileges, knowledge of patient current condition, hospital course, and medical plan of care. Services: Services provided to patient in accordance with Admission requirements found in Title 42 Section 412.3 of the Code of Federal Regulations <Karey Burt - Last Filed: 03/10/24 18:00> Patient History Date of Service: 03/10/24 Primary Care Provider: Brigid Reason for admission: Acute cholecystitis History of Present Illness: Ms. Dawson is a 68-year-old female with a past medical history of hypertension and diabetes. For the last week she has had diarrhea for which she saw her PCP, Dr. Rainey. She received a prescription for dicyclomine with some improvement. She presented to the emergency room last evening for increased nausea and epigastric and upper right abdominal pain with radiation to her back. She does admit to continued nausea and vomiting but denies fever, shortness of breath, or chest pain. She was evaluated in the emergency department and found to have acute cholecystitis. The emergency department physician spoke with Dr. Espinosa who plans for cholecystectomy today. Labs: CBC unremarkable, chemistries significant for potassium of 3.4, creatinine 1.02, negative transaminitis, T. bili 0.4, troponin 4.7, urine negative for abnormality, patient does have a lipase of 91 (pancreas within normal limits per CT) Imaging: CT abdomen and pelvis with impression: "Cholelithiasis with gallbladder wall thickening and stranding surrounding the gallbladder, concerning for acute cholecystitis." Also reports hepatic steatosis and moderate stool burden Home medications list reviewed: Yes - Past Medical/Surgical History Has patient received pneumonia vaccine in the past: No Diabetic: Yes -: HTN -: NIDDM -: C/S x 1 Psychosocial/ Personal History: Lives at home with her . No medical equipment. Speaks primarily Prydeinig. - Family History Father -: Hypertension, Diabetes Brother -: Hypertension, Diabetes - Social History Smoking Status: Never smoker Alcohol use: No CD- Drugs: No Caffeine use: Yes Place of Residence: Home <Karey Burt - Last Filed: 03/10/24 18:00> Date of Service: 03/10/24 <Sophy Chang - Last Filed: 03/11/24 05:38> Allergies No Known Allergies Allergy (Verified 03/10/24 07:42) Home Medications: Amlodipine [Norvasc*] 5 mg PO DAILY 03/10/24 Atorvastatin Calcium [Lipitor] 100 mg PO DAILY 03/10/24 Dicyclomine [Bentyl*] 20 mg PO Q6HR 03/10/24 Losartan Potassium 100 mg PO DAILY 03/10/24 Metformin HCl 1,000 mg PO BID 03/10/24 Pantoprazole [Protonix Tab*] 40 mg PO DAILY 03/10/24 glipiZIDE [Glipizide] 5 mg PO BID 03/10/24 hydroCHLOROthiazide [Hydrochlorothiazide] 25 mg PO DAILY 03/10/24 Review of Systems 10-point ROS is otherwise unremarkable General: As per HPI Eyes: Unremarkable ENT: Unremarkable Respiratory: Unremarkable Cardiovascular: Unremarkable Gastrointestinal: Nausea, Vomiting, Abdominal Pain, Diarrhea, As per HPI Genitourinary: Unremarkable Musculoskeletal: Unremarkable Integumentary: Unremarkable Neurological: Unremarkable Lymphatics: Unremarkable <Karey Burt - Last Filed: 03/10/24 18:00> Physical Examination - Vital Signs Temperature: 97.8 F Blood Pressure: 107/72 Pulse: 85 Respirations: 16 Pulse Ox (%): 100 - Physical Exam General: Alert, In no apparent distress, Oriented x3, Cooperative HEENT: Atraumatic, Normocephalic Neck: Supple Respiratory: Clear to auscultation bilaterally, Normal air movement Cardiovascular: No edema, Regular rate/rhythm Capillary refill: <2 Seconds Gastrointestinal: Normal bowel sounds, No guarding, Distended Musculoskeletal: No clubbing, No swelling Integumentary: No rashes Neurological: Normal speech, Normal tone, Normal affect Lymphatics: No axilla or inguinal lymphadenopathy External genitalia: Deferred Rectal: Deferred - Studies Laboratory Data (last 24 hrs) 03/10/24 03/10/24 03:43 03:43 WBC 10.30 Hgb 11.4 L Hct 34.3 L Plt Count 506 H Sodium 136 Potassium 3.4 L BUN 11 Creatinine 1.02 Glucose 159 H Total Bilirubin 0.4 AST 28 ALT 45 Alkaline Phosphatase 36 L Lipase 91 H <Karey Burt - Last Filed: 03/10/24 18:00> Assessment and Plan - Plan Abdominal pain secondary to acute cholecystitis Consult Dr. Espinosa N.p.o. IV fluid Zosyn 3.375 g IV every 8h Pain control I and O I-S Early ambulation Teds Hold prophylactic Lovenox until postsurgical Constipation (CT shows moderate stool burden) Post abdominal surgery will begin lactulose daily and simethicone every 6 hours History of hypertension Monitor and trend but hold p.o. meds at this time History of diabetes Patient takes metformin and glipizidehold Fingerstick blood sugar every 6 hours with mild sliding scale coverage EKG normal sinus rhythm with flipped T in aVR, denies chest pain, denies shortness of breath, sees Dr. Mackey, CT shows clear lung bases GI/VTE prophylaxis Protonix/teds and early ambulation Discharge Plan: Home Plan to discharge in: 48 Hours - Advance Directives Does patient have a Living Will: No Does patient have a Durable POA for Healthcare: No - Code Status/Comfort Care Code Status Assessed: Yes (Full) Critical Care: No <Karey Burt - Last Filed: 03/10/24 18:00> Date of Service: 03/10/24 Chart has been reviewed. Events of the last 24 hours have been noted. Case discussed with GANESH. I performed a substantial part of the MDM during this patient's care today. I personally made or approved the documented management plan and acknowledge its risk of complications. I agree with the findings and documentation provided in the GANESH's notes <Sophy Chang - Last Filed: 03/11/24 05:38>
[2024-03-10] MEDS: PANTOPRAZOLE 40 MG INJ IVP SCH (11:12)
[2024-03-10] MEDS: NA CHLORIDE 0.9% 1,000 ML IV SCH (11:12)
[2024-03-10 11:38] VITALS: BMI 26.2
[2024-03-10] MEDS: INSULIN REGULAR (HUMAN) 100 UNIT/ML SQ SCH (12:00)
--- NOTE | 2024-03-10 12:25 | EKG ---
Test Date: 2024-03-10 Test Time: 03:52:39 Cut Press Operator: MACEY MEASUREMENT RESULTS: Intervals: Rate: 63 TX: 138 QRSD: 100 QT: 430 QTc: 440 [place]: P: 60 TX: 138 QRS: 88 T: 17 INTERPRETIVE STATEMENTS: Normal sinus rhythm Normal ECG Compared to ECG 09/17/2020 00:49:26 No significant changes Electronically Signed On 03-10-24 12:24:46 CDT by Mauricio Castillo
--- NOTE | 2024-03-10 13:24 | RAD REPORT ---
EXAMINATION: US ABDOMEN LIMITED INDICATION: Female, 68 years old, ruq COMPARISON(S): Recent CT abdomen/pelvis. TECHNIQUE: Sonographic imaging of the gallbladder. FINDINGS: Liver: Imaged parenchyma is unremarkable. Biliary system: Large echogenic shadowing stone at the gallbladder neck. Gallbladder wall thickness m easures 3.3 mm. Common duct diameter measures 5.5 mm. Berry Picker reports negative sonographic Severino's sign. Other: No visualized ascites. IMPRESSION: Cholelithiasis and mild gallbladder wall thickening with negative sonographic Severino sign, suggestive of acute cholecystitis. Correlate with hepatic enzymes and consider nuclear medicine hepatobiliary scan if there is persistent clinical uncertainty for acute cholecystitis. Electronically signed by: Rai Brian MD 03/10/2024 06:22 AM CDT RP Due to temporary technical issues with the PACS/JobOn reporting system, reports are being erin d by the in-house radiologist without review as a courtesy to ensure prompt reporting the interpreting radiologist is fully responsible for the content of the report. Transcribed Date/Time: 03/10/2024 1:24 PM
[2024-03-10] MEDS: PIPER TAZO 3.375 GM in NA CHLORIDE 0.9% 100 ML IV SCH (15:36)
[2024-03-10] MEDS: ENOXAPARIN 40 MG/0.4 ML SQ SCH (17:00)
[2024-03-11 07:05] LABS: Absolute Eosinophils 0.1 K/uL (0-0.5); Absolute Lymphocytes (CBC) 1.8 K/uL (0.7-4.9); Absolute Monocytes 0.7 K/uL (0.1-1.3); Absolute Neutrophil 3.1 K/uL (1.8-8.0); Basophils % 0.6 % (0-1.3); Eosinophils % 2.4 % (0-4.4); Hematocrit 29.7 % (36.0-45.0); Hemoglobin 10.1 g/dL (12.0-15.0); Lymphocytes % 31.7 % (15.3-44.8); MCHC 33.9 g/dL (32.0-36.0); MCV 88.3 fL (80-100); MPV 7.9 fL (7.6-11.3); Monocytes % 11.6 % (3.3-12.3); Neutrophils % 53.7 % (41.7-73.7); Platelets 412 thou/uL (152-406); RBC Red Blood Cell Count 3.37 M/uL (3.86-4.86); Red Cell Distribution Width 14.7 % (12.1-15.2)
[2024-03-11 07:19] LABS: Albumin 2.9 g/dL (3.4-5.0); Albumin/Globulin Ratio 0.7 (1.1-1.8); Bilirubin Total 0.5 mg/dL (0.2-1.0); Globulin 3.9 g/dL (2.3-3.5); Magnesium 1.6 mg/dL (1.6-2.4); Protein, Total 6.8 g/dL (6.4-8.2)
[2024-03-11] MEDS ORDERED: LACTULOSE 20 GM/30 ML UCUP PO PRN (07:24)
[2024-03-11] MEDS ORDERED: D50W 25 GM/50 ML SYRINGE IV PRN (07:28)
[2024-03-11] MEDS ORDERED: D10W 125 ML IV PRN (07:29)
[2024-03-11] MEDS: INSULIN REGULAR (HUMAN) 100 UNIT/ML SQ SCH (07:30)
--- NOTE | 2024-03-11 07:35 | P.PN ---
Date of Service: 03/11/24 subjective Nausea, pain, controlled with as needed analgesics/antiemetic N.p.o. for surgery to eval today Aphasia from prior stroke Review of Systems subjective 10-point ROS is otherwise unremarkable Physical Examination - Vital Signs reviewed - Physical Exam General: Alert, In no apparent distress, Oriented x3, Cooperative HEENT: Atraumatic, Normocephalic Neck: Supple Respiratory: Clear to auscultation bilaterally, Normal air movement Cardiovascular: No edema, Regular rate/rhythm Capillary refill: <2 Seconds Gastrointestinal: Normal bowel sounds, mild abdominal tenderness Musculoskeletal: No clubbing, No swelling Integumentary: No rashes Neurological: Normal speech, Normal tone, Normal affect, aphasia Lymphatics: No axilla or inguinal lymphadenopathy assessment plan Acute cholecystitis Acute right upper quadrant abdominal pain Acute nausea vomiting Acute constipation Surgery consult, N.p.o. for surgery today 03/11 laparoscopic cholecystectomy IV fluids, IV antibiotics, as needed analgesics, antiemetics Acute hypoglycemic episode As needed hypoglycemic Acute hypocalcemia Replace as needed Essential hypertension Resume appropriate home meds History of CVA Aphasia at baseline Generalized weakness, fall precaution Diabetes mellitus type 2 patient takes metformin and glipizidehold Accu-Cheks, sliding scale GI/VTE prophylaxis Protonix/teds and early ambulation Discharge Plan: Home Plan to discharge in: 48 Hours - Advance Directives Does patient have a Living Will: No Does patient have a Durable POA for Healthcare: No - Code Status/Comfort Care Code Status Assessed: Yes (Full) Critical Care: No
[2024-03-11] MEDS: DEXTROSE 10%-WATER 500 ML IV ONE (07:56)
[2024-03-11] MEDS: SIMETHICONE 125 MG TAB PO SCH (08:00)
[2024-03-11] MEDS ORDERED: CALCIUM GLUCONATE 1 GM IVPB 1 GM/50 ML BAG IV SCH (08:00)
[2024-03-11] MEDS: MAGNESIUM SULFATE 1 gm IVPB 1 GM/100 ML BAG IV ONE (08:53)
[2024-03-11] MEDS ORDERED: GLYCOPYRROLATE 0.2 MG/ML SYR ONE (12:12)
[2024-03-11] MEDS ORDERED: LIDOCAINE 2% MPF 5 ML VIAL ONE (12:12)
[2024-03-11] MEDS ORDERED: ONDANSETRON 4 MG/2 ML VIAL ONE (12:12)
[2024-03-11] MEDS ORDERED: ROCURONIUM 50 MG/5 ML VIAL IV ONE (12:12)
[2024-03-11] MEDS ORDERED: NEOSTIGMINE 1 MG/ML -10 ML VIAL ONE (12:12)
[2024-03-11] MEDS ORDERED: FENTANYL CITR 100 MCG/2 ML ONE (12:13)
[2024-03-11] MEDS ORDERED: propofoL 200 MG/20 ML VIAL IV ONE (12:13)
[2024-03-11] MEDS ORDERED: MIDAZOLAM HCL 2 MG/2 ML INJ ONE (12:14)
[2024-03-11] MEDS: CALCIUM GLUCONATE 1 GM IVPB 1 GM/50 ML BAG IV ONE (12:46)
[2024-03-11] MEDS: LIDOCAINE HCL/EPINEPHRINE 20 ML MDV ONE (13:25)
[2024-03-11] MEDS: NA CHLORIDE 0.9% 1,000 ML ONE ×2 (15:21→15:54)
[2024-03-11] MEDS ORDERED: dexAMETHasone 4 MG/ML VIAL ONE (15:39)
--- NOTE | 2024-03-11 16:21 | CON ---
Date of Consultation: 03/11/2024 Brief History Of Present Illness: The patient is a 68-year-old female with past medical his tory of hypertension, diabetes, who had been noticing diarrhea and worsening abdominal pain over the course of the last week. She tried some dicyclomine with minimal improvement, but came back with wor sening nausea, epigastric pain which radiated to the right upper quadrant and slightly through to her back on the right side. She denied fever, chills, or other similar complaints. She had been seen i n the ER and brought in the hospital for evaluation. Past Medical History: Significant for diabetes, hypertension. Past Surgical History: Includes . Social History: She lives at home with her . She is [place] Citizen and [place] speaking. She denie s smoking, alcohol, or recreational drug use. Family History: Significant for hypertension and diabetes in her father. Brother has hypertension a nd diabetes. Review of Systems: Ten-point review of systems other than HPI, denies. Allergies: NO KNOWN DRUG ALLERGIES. Home Medications: Include Norvasc, Lipitor, Bentyl, losartan, metformin, Protonix, glipizide, hydroc hlorothiazide. Physical Examination: General: At the time of my examination, she is awake, alert, and oriented. Psychiatric: Appropriate. Conversive. HEENT: Normocephalic. Sclerae anicteric. Mucous membranes are moist. Oropharynx clear. Neck: Supple. No JVD. Chest: Normal expansion and excursion. Cardiovascular: Regular rate and rhythm. Pulmonary: Clear to auscultation bilaterally. Abdomen: Soft, with mild tenderness in the right upper quadrant. No rebound. No guarding. No foca l peritonitis. Severino sign is negative at this time. Extremities: No clubbing, cyanosis, or edema. Skin: Warm and dry. Laboratory Data: Revealed a white blood cell count of 10.3, hemoglobin 11.4, hematocrit of 34.4, katja telet count 506. Sodium 136, potassium 3.4, chloride 105, carbon dioxide 22, BUN 11, creatinine 1.02 , glucose is 159. Her AST is 20, ALT is 45, alkaline phosphatase is 36, total bilirubin 0.4. Tropon in is 4.7, lipase is 91. Urinalysis was negative. She had an imaging performed, which included an a bdomen and pelvis CT and an abdominal ultrasound. The abdomen and pelvis CT was officially read as c holelithiasis with gallbladder wall thickening and stranding surrounding the gallbladder concerning f or acute cholecystitis, hepatic steatosis, and moderate stool burden. She additionally had an abdomi nal ultrasound performed which was officially read as cholelithiasis, mild gallbladder wall thickenin g. Negative Severino sign suggestive of acute cholecystitis, probably echogenic shadowing stone at the gallbladder neck. Assessment And Plan: This is a 68-year-old woman who comes in with signs and symptoms of acute calcu lous cholecystitis. 1.IV fluid hydration. 2.Antibiotic coverage. 3.I explained risks, benefits, and alternatives to laparoscopic possible open cholecystectomy with i ndocyanine green cholangiography, possible intraoperative cholangiography, and indicated procedures i ncluding, but not limited to, bleeding, infection, damage to surrounding tissue, need for further ope rative procedures, injury to bile ducts and intestines, heart attack, blood clots, strokes, and other unforeseen complications in the perioperative period. The patient displayed understanding of the ab ove stated plan and agreed to proceed as indicated. The patient was not NPO, and as such was schedul ed for the next day, which would be 03/11/2024. Thank you for this interesting consult. BRENDAN/DANICA Voice ID: [id number] Report ID: [id number]
--- NOTE | 2024-03-11 16:59 | P.OP ---
Preoperative diagnosis: Acute Cholecystitis with Cholelithiasis Postoperative diagnosis: Acute Cholecystitis with Cholelithiasis Primary procedure: Laparoscopic Cholecystectomy with ICG cholangiography Anesthesia: GETA + Local Estimated blood loss: <5cc Specimen: Gallbladder Findings: Dense Adhesions, ant/post br of cystic artery, long extrahepatic art, cysti Complications: None Implants: Ralph Hemostatic Powder Transferred to: Recovery Room Condition: Good
[2024-03-11] MEDS: FENTANYL CITR 100 MCG/2 ML ONE (17:20)
--- NOTE | 2024-03-11 19:21 | OP ---
Date of Procedure: 03/11/2024 Surgeon: Trevor Espinosa MD, Preoperative Diagnosis: Acute cholecystitis with cholelithiasis. Postoperative Diagnosis: Acute cholecystitis with cholelithiasis. Procedure Performed: Laparoscopic cholecystectomy with indocyanine green cholangiography. Anesthesia: General endotracheal plus local with 1% lidocaine. Estimated Blood Loss: Less than 5 cc. Specimen: Gallbladder. Findings: 1.Dense adhesions of the right upper quadrant between omentum and stomach to anterior surface of the gallbladder. 2.Short cystic duct. 3.Anterior, posterior branch of the cystic artery with a long extrahepatic course of the right branc h of the hepatic artery. In addition, the anterior branch of the cystic artery ran on anterior to e gallbladder along almost to the fundus with a dive deep with an accessory branch that ran off the a nterior surface of the gallbladder to dive medially to dive into the substance of the medial aspect o f the gallbladder, but not the liver. Severe dense adhesions were noted down in the cystic duct, cys tic artery, common duct confluence. 4.Umbilical hernia. Complications: None immediate. Implants: Ralph hemostatic powder. Disposition: The patient transferred to recovery room in good condition. Procedure In Detail: After informed consent was obtained, patient was brought to the operating room, prepped and draped in the usual sterile fashion, after adequate anesthesia was achieved. I anesthet ized an area of the supraumbilical position down through subcutaneous tissues. After this was perfor med, a 5 mm 0-degree optical trocar was introduced in the abdomen without incident or complication. Insufflation was obtained to 15 mmHg, at this time. There was no injury to vital structures upon ent ering the abdomen. I inspected the abdomen, at this point. I noted an infraumbilical hernia that wa s appreciated, at this point. At this point, the patient was positioned in the head up position. Th ere were no injuries upon entry in the abdomen. Insufflation was maintained at 15 mmHg throughout th e procedure. Three additional trocars were placed, one in the epigastrium, one in the right upper qu adrant, and one in the right mid abdomen. All of these were 5 mm trocars, placed under direct visual ization without incident or complication. 12 mm trocar was then upsized to a 12 mm under direct visu alization without incident or complication. Gallbladder was grasped, placed towards the patient's ri t shoulder. Dissection continued down to remove thick dense adhesions on the anterior surface of t he gallbladder, ultimately encountering a vascular structure near the fundus of the gallbladder which was thick and pulsatile. I traced this back and found it to be an anterior branch of the cystic art ameena which dove into near the fundus of the gallbladder and it had a medial branch. It went off towar d the liver on the medial aspect of the hepatic fossa. However, it did not dive into the substance o f the liver, but rather dove into the gallbladder at an additional spot. This was dissected free by taking down the peritoneal attachments on the medial and lateral aspects of the gallbladder in a dome down type approach to better discern the anatomy of this area. I then continued down after removing dense adhesions to expose the Enedelia pouch of the gallbladder. There were severe dense thick adhe sions which required significant dissection to allow for visualization of this. There were significa nt inflammatory changes with hydropic appearance to the surrounding tissues and edematous fluid colle ctions in the area. As I continued the dissection, I was able to distract the gallbladder out and vi sualize the cystic duct and cystic artery structures as described above with a posterior branch also being noted, at this point. There was a branch of the right hepatic artery which had a long extrahep atic course in a circular orientation with the 2 branches visualized at this point coming off separat leta, but both leading to the gallbladder directly. After these structures were skeletonized, I visua lized the critical view of safety at this point after skeletonizing these structures and seeing the c ystic duct as well. There was a short confluence of the cystic duct, common duct. The spiral valves of the cystic duct were appreciated. They were quite thick, at this point. After these structures were skeletonized, as described above, I placed double titanium clips on the proximal side and singly on the distal side of both cystic duct and cystic artery. I did have some issues with the clip appl ier and required multiple clip applications as the clips would come off on occasion and did not seem to have good apposition. Therefore, until I felt the clips were in good anatomic position, I was not confident and therefore I replaced the clips until good clips were applied on both the cystic duct o n the anterior and posterior branch of the cystic duct and cystic artery after these structures were completely skeletonized visualizing no entry into the liver, at this point, and visualizing the right hepatic artery. At this point, these structures were ligated with Endo Maury on the cystic duct an d the LigaSure device was used to seal the cystic artery on both anterior and posterior branch. At t his point, I removed the gallbladder from the hepatic fossa and because of the clip issues, I describ ed earlier, I opted at this point to place an Endo loop of Vicryl suture around the cystic duct stump to just proximal to the proximal clip with good apposition and no narrowing of the cystic duct, comm on duct junction. ICG cholangiography confirmed no leakage of bile, at this point, and no narrowing of the common bile duct. I then proceeded to remove the gallbladder off the hepatic fossa without in cident or complication using electrocautery, placed in an EndoCatch bag, removed through the umbilica l trocar site, sent off for pathologic examination. The area was copiously irrigated. No hemostatic maneuvers were required. I then inspected the area, at this point. There was no additional hemosta tic maneuvers required. I performed ICG cholangiography once again to visualize for any evidence of bile leakage using different intensities of the ICG monitoring. No leakage of bowel was appreciated, at this point. At this time, I sprayed Ralph hemostatic powder into the subhepatic space and ultim ately placed the patient back in neutral position. All effluent was suctioned out, at this point. I then closed the 12 mm trocar site using a Enmanuel-Nato suture passer with #1 Vicryl in an interru pted fashion with several interrupted sutures partially reapproximating the umbilical hernia. At thi s point, the abdomen was then desufflated under direct visualization without incident or complication . All the remaining trocars were removed. All skin incisions were then copiously irrigated and clos ed with a 4-0 Monocryl in a running fashion. Dermabond was placed over top. The patient tolerated t he procedure well without incident or complication, transferred to PACU in good condition. All counts were correc t at the end of the case. TK/MODL Voice ID: [id number] Report ID: [id number]
[2024-03-11] MEDS: MORPHINE 4 MG/ML SYR IV PRN (20:25)
[2024-03-12 04:46] LABS: Absolute Lymphocytes (CBC) 1.2 K/uL (0.7-4.9); Absolute Monocytes 0.2 K/uL (0.1-1.3); Absolute Neutrophil 10.4 K/uL (1.8-8.0); Basophils % 0.1 % (0-1.3); Hematocrit 33.2 % (36.0-45.0); Hemoglobin 11.2 g/dL (12.0-15.0); Lymphocytes % 9.9 % (15.3-44.8); MCH 29.5 pg (27.0-35.0); MCHC 33.9 g/dL (32.0-36.0); MCV 87.2 fL (80-100); MPV 7.7 fL (7.6-11.3); Monocytes % 1.8 % (3.3-12.3); Neutrophils % 88.2 % (41.7-73.7); Nucleated Red Blood Cells % 0.1 % (0-0); Platelets 470 thou/uL (152-406); Red Cell Distribution Width 14.6 % (12.1-15.2)
[2024-03-12 04:57] LABS: Albumin 3.1 g/dL (3.4-5.0); Albumin/Globulin Ratio 0.8 (1.1-1.8); Anion Gap 11.2 mEq/L (5.0-15.0); Bilirubin Total 0.4 mg/dL (0.2-1.0); Magnesium 1.6 mg/dL (1.6-2.4); Potassium 4.2 mEq/L (3.5-5.1); Protein, Total 7.1 g/dL (6.4-8.2)
[2024-03-12 05:20] LABS: Band Neutrophils 14 % (0-1); Differential Total Cells Count 100; Lymphocytes 6 % (15-42); Monocytes 3 % (0-10); Reactive Lymphocytes 4 %; Segmented Neutrophils 73 % (40-80)
[2024-03-12 05:21] LABS: Blood Morphology Comment NOT SEEN (NOT SEEN); Platelet Estimate ADEQ
[2024-03-12] MEDS: HYDROCODONE/APAP 5/325 MG TAB PO PRN (06:45)
[2024-03-12 07:26] VITALS: O2SAT 94
[2024-03-12] MEDS: MAGNESIUM SULFATE 1 gm IVPB 1 GM/100 ML BAG IV ONE (08:32)
--- NOTE | 2024-03-12 11:02 | P.DS ---
Admission Date: 03/10/24 Discharge Date: 03/12/24 Primary Care Provider: Brigid Reason for Admission: Acute cholecystitis Consultations: Dr. Espinosa Procedures: Lap cholecystectomy Brief History of Present Illness: Ms. Dawson is a 68-year-old female with a past medical history of hypertension and diabetes. For the last week she has had diarrhea for which she saw her PCP, Dr. Rainey. She received a prescription for dicyclomine with some improvement. She presented to the emergency room last evening for increased nausea and epigastric and upper right abdominal pain with radiation to her back. She does admit to continued nausea and vomiting but denies fever, shortness of breath, or chest pain. She was evaluated in the emergency department and found to have acute cholecystitis. The emergency department physician spoke with Dr. Espinosa who plans for cholecystectomy today. Labs: CBC unremarkable, chemistries significant for potassium of 3.4, creatinine 1.02, negative transaminitis, T. bili 0.4, troponin 4.7, urine negative for abnormality, patient does have a lipase of 91 (pancreas within normal limits per CT) Imaging: CT abdomen and pelvis with impression: "Cholelithiasis with gallbladder wall thickening and stranding surrounding the gallbladder, concerning for acute cholecystitis." Also reports hepatic steatosis and moderate stool burden Hospital Course: Ms. Dawson had her cholecystectomy laparoscopically 03/11/[address] Espinosa. She is feeling good. Tolerating fluids. Voiding without difficulty. She voices understanding of the postcholecystectomy diet and states she will comply with that strictly. <Karey Burt - Last Filed: 03/12/24 11:30> Admission Date: 03/10/24 Discharge Date: 03/12/24 Hospital Course: Discharge diagnosis Acute cholecystitis status post lap cholecystectomy Diabetes mellitus type 2 Essential hypertension <michael carballo - Last Filed: 03/12/24 18:41> Disposition: ROUTINE DISCHARGE Discharge Condition: GOOD Vital Signs/Physical Exam: Temp Pulse Resp BP Pulse Ox 97.6 F 58 20 131/64 94 03/12/24 08:00 03/12/24 08:00 03/12/24 08:00 03/12/24 08:00 03/12/24 08:00 General: Alert, In no apparent distress, Oriented x3 HEENT: Atraumatic, Normocephalic Neck: Supple Respiratory: Clear to auscultation bilaterally Cardiovascular: Normal pulses, Regular rate/rhythm, Normal S1 S2 Capillary refill: <2 Seconds Gastrointestinal: Hypoactive, Soft and benign, Other (Lap dressings dry and intact) Musculoskeletal: No clubbing, No swelling Integumentary: No rashes Neurological: Normal speech, Normal tone, Normal affect Lymphatics: No axilla or inguinal lymphadenopathy External genitalia: Deferred Rectal: Deferred Laboratory Data at Discharge: WBC 11.70 thou/uL (4.3-10.9) H 03/12/24 04:04 Hgb 11.2 g/dL (12.0-15.0) L D 03/12/24 04:04 Hct 33.2 % (36.0-45.0) L 03/12/24 04:04 Plt Count 470 thou/uL (152-406) H 03/12/24 04:04 Sodium 137 mEq/L (136-145) 03/12/24 04:04 Potassium 4.2 mEq/L (3.5-5.1) 03/12/24 04:04 BUN 6 mg/dL (7-18) L 03/12/24 04:04 Creatinine 0.92 mg/dL (0.55-1.02) 03/12/24 04:04 Glucose 223 mg/dL (74-106) H 03/12/24 04:04 Magnesium 1.6 mg/dL (1.6-2.4) 03/12/24 04:04 Total Bilirubin 0.4 mg/dL (0.2-1.0) 03/12/24 04:04 AST 29 U/L (15-37) 03/12/24 04:04 ALT 43 U/L (13-56) 03/12/24 04:04 Alkaline Phosphatase 26 U/L (45-117) L 03/12/24 04:04 Triglycerides 101 mg/dL (<150) 03/11/24 06:27 Cholesterol 144 mg/dL (<200) 03/11/24 06:27 HDL Cholesterol 35 mg/dL (40-60) L 03/11/24 06:27 Cholesterol/HDL Ratio 4.11 03/11/24 06:27 Lipase 91 U/L (13-75) H 03/10/24 03:43 <Burt,Karey Rafa - Last Filed: 03/12/24 11:30> Vital Signs/Physical Exam: Temp Pulse Resp BP Pulse Ox 97.7 F 54 22 H 146/65 H 93 03/12/24 12:00 03/12/24 12:00 03/12/24 12:00 03/12/24 12:00 03/12/24 12:00 Laboratory Data at Discharge: WBC 11.70 thou/uL (4.3-10.9) H 03/12/24 04:04 Hgb 11.2 g/dL (12.0-15.0) L D 03/12/24 04:04 Hct 33.2 % (36.0-45.0) L 03/12/24 04:04 Plt Count 470 thou/uL (152-406) H 03/12/24 04:04 Sodium 137 mEq/L (136-145) 03/12/24 04:04 Potassium 4.2 mEq/L (3.5-5.1) 03/12/24 04:04 BUN 6 mg/dL (7-18) L 03/12/24 04:04 Creatinine 0.92 mg/dL (0.55-1.02) 03/12/24 04:04 Glucose 223 mg/dL (74-106) H 03/12/24 04:04 Magnesium 1.6 mg/dL (1.6-2.4) 03/12/24 04:04 Total Bilirubin 0.4 mg/dL (0.2-1.0) 03/12/24 04:04 AST 29 U/L (15-37) 03/12/24 04:04 ALT 43 U/L (13-56) 03/12/24 04:04 Alkaline Phosphatase 26 U/L (45-117) L 03/12/24 04:04 Triglycerides 101 mg/dL (<150) 03/11/24 06:27 Cholesterol 144 mg/dL (<200) 03/11/24 06:27 HDL Cholesterol 35 mg/dL (40-60) L 03/11/24 06:27 Cholesterol/HDL Ratio 4.11 03/11/24 06:27 Lipase 91 U/L (13-75) H 03/10/24 03:43 <michael carballo - Last Filed: 03/12/24 18:41> Diet: [place] Activity: No lifting more than 10 lbs <Karey Burt - Last Filed: 03/12/24 11:30> <michael carballo - Last Filed: 03/12/24 18:41> Home Medications: Amlodipine [Norvasc*] 5 mg PO DAILY 03/10/24 Atorvastatin Calcium [Lipitor] 100 mg PO DAILY 03/10/24 Losartan Potassium 100 mg PO DAILY 03/10/24 Metformin HCl 1,000 mg PO BID 03/10/24 Pantoprazole [Protonix Tab*] 40 mg PO DAILY 03/10/24 glipiZIDE [Glipizide] 5 mg PO BID 03/10/24 hydroCHLOROthiazide [Hydrochlorothiazide] 25 mg PO DAILY 03/10/24 Amox/Clavulanate [Augmentin 875-125 Tab] 1 each PO BID #10 tab 03/12/24 Hydrocodone 5/APAP 325 [[place] 5/325] 1 tab PO Q8H PRN #15 tab 03/12/24 New Medications: Amox/Clavulanate [Augmentin 875-125 Tab] 1 each PO BID #10 tab Hydrocodone 5/APAP 325 [[place] 5/325] 1 tab PO Q8H PRN #15 tab PRN Reason: Pain Physician Discharge Instructions: Ms. Dawson had her cholecystectomy laparoscopically 03/11/[address] Espinosa. She is feeling good. Tolerating fluids. Voiding without difficulty. She voices understanding of the postcholecystectomy diet and states she will comply with that strictly. Continue home medicines as previously prescribed GOAL: Clear understanding of disease process Diet: "like a rabbit", Dr. Espinosa gallbladder diet Activity: Fall precautions INSTRUCTIONS: Physician Discharge Instructions: Okay to DC IV and DC home Follow-up with primary care provider in 1 to 2 weeks Follow-up with Jesús in 1 week Please call the inpatient unit for any questions or concerns regarding hospital stay Return to the ER for worsening symptoms Followup: Trevor Espinosa MD [ACTIVE - CAN ADMIT] - 1-2 Weeks Miguel Angel Rainey MD [Primary Care Provider] - 1-2 Weeks
[2024-03-12 14:17] VITALS: BP 146/65; TEMP 97.7
== END 2024-03-12 13:52 | disposition home or self-care (01) | DRG 419 ==
LOC: ER 03:22 → ERHOLD 07:45 → 2ND 07:57
PROVIDERS: ADMIT Hospitalist; ATTEND Internal Medicine
PROC: BF52200 Other Imaging of Gallbladder using Fluorescing Agent, Indocyanine Green Dye, Intraoperative (ICD-10-PCS; 2024-03-11)
PROC: 0FT44ZZ Resection of Gallbladder, Percutaneous Endoscopic Approach (ICD-10-PCS; principal; 2024-03-11 14:15)
DX: K80.00 Calculus of gallbladder with acute cholecystitis without obstruction (principal); E83.51 Hypocalcemia; K59.00 Constipation, unspecified; I10 Essential (primary) hypertension; I69.320 Aphasia following cerebral infarction; E11.649 Type 2 diabetes mellitus with hypoglycemia without coma; K76.0 Fatty (change of) liver, not elsewhere classified; Z79.84 Long term (current) use of oral hypoglycemic drugs; Z79.899 Other long term (current) drug therapy
CPT/HCPCS: 36415; 74177; 76705; 80053; 80061; 81003; 82947; 83690; 83735; 84484; 85025; 88304; 93005; 94010; 96361; 96365; 96375; 99285; J0612; J1100; J1650; J2001; J2250; J2405; J2470; J2543; J2704; J2710; J3010; J3475; J7030; Q9967